=== PATIENT | female | born 1960 | race Caucasian/White ===

== ENCOUNTER 2020-12-14 14:24 | Emergency (ER) | payer OTHER ==
[~2020-12-14 14:24] MED LIST: PEPCID AC20 MG PO
[2020-12-14 16:27] LABS: BASOPHIL 0.5 % (0-2); EOSINOPHIL 1.6 % (0-5); HCT 40.5 % (37.0-47.0); HGB 13.4 g/dl (12.5-16.0); LYMPHOCYTE 47.5 % (15-48); MCH 31.3 pg (25.0-31.0); MCHC 33.1 g/dL (32.0-36.0); MCV 94.6 fL (78.0-100.0); MONOCYTE 6.5 % (0-12); MPV 9.1 fL (6.0-9.5); NEUTROPHIL 43.6 % (41-80); NRBC 0; PLT 258 K/uL (150-400); RBC 4.28 M/uL (4.20-5.40); RDW 13.8 % (11.5-14.0); WBC 8.7 K/uL (4.0-10.5)
[2020-12-14 16:43] LABS: ALBUMIN 3.7 g/dL (3.4-5.0); BILIRUBIN - TOTAL 0.3 mg/dL (0.2-1.0); BUN/CREAT RATIO (CALC) 26.1 RATIO; CREATININE 0.88 mg/dL (0.51-0.95); GLOBULIN (CALCULATION) 3.4 g/dL; POTASSIUM 4.3 mmol/L (3.5-5.1); TOTAL PROTEIN 7.1 g/dL (6.4-8.2)
[2020-12-14 16:58] LABS: BILIRUBIN NEGATIVE (NEGATIVE); BLOOD NEGATIVE Ery/uL (NEGATIVE); CLARITY CLEAR (CLEAR); COLOR YELLOW (YELLOW); GLUCOSE (U) NORMAL (NORMAL); LEUKOCYTES 1+ Leu/uL (NEGATIVE); NITRITE NEGATIVE (NEGATIVE); PROTEIN NEGATIVE (NEGATIVE); UROBILINOGEN 0.2 mg/dL (0.2-1.0); pH 5.5 (5.0-9.0)
[2020-12-14 17:05] LABS: BACTERIA TRACE
[2020-12-14] MEDS ORDERED: MACROBID100 MG PO (18:59)
== END 2020-12-14 19:27 | disposition home or self-care (01) ==
LOC: FER 14:24
PROVIDERS: Nurse Practitioner Family
DX: N39.0 Urinary tract infection, site not specified (principal); I10 Essential (primary) hypertension; J45.909 Unspecified asthma, uncomplicated; E11.9 Type 2 diabetes mellitus without complications; Z20.822 Contact with and (suspected) exposure to COVID-19; Z88.0 Allergy status to penicillin; Z88.8 Allergy status to other drugs, medicaments and biological substances
CPT/HCPCS: 36415; 74022; 80053; 81001; 85025; J7030; U0002

== ENCOUNTER 2021-09-09 12:09 | Emergency (ER) | payer OTHER ==
[~2021-09-09 12:09] MED LIST changes: +MACROBID100 MG PO
[2021-09-09 13:23] LABS: BASOPHIL 0.5 % (0-2); EOSINOPHIL 1.5 % (0-5); HCT 41.8 % (37.0-47.0); LYMPHOCYTE 46.2 % (15-48); MCH 30.9 pg (25.0-31.0); MCHC 33.5 g/dL (32.0-36.0); MCV 92.3 fL (78.0-100.0); MONOCYTE 5.7 % (0-12); MPV 8.8 fL (6.0-9.5); NEUTROPHIL 45.1 % (41-80); NRBC 0; PLT 257 K/uL (150-400); RBC 4.53 M/uL (4.20-5.40); RDW 13.9 % (11.5-14.0); WBC 9.9 K/uL (4.0-10.5)
[2021-09-09 13:32] LABS: ALBUMIN 3.7 g/dL (3.4-5.0); BILIRUBIN - TOTAL 0.3 mg/dL (0.2-1.0); BUN/CREAT RATIO (CALC) 19.6 RATIO; CREATININE 0.92 mg/dL (0.51-0.95); GLOBULIN (CALCULATION) 3.5 g/dL; TOTAL PROTEIN 7.2 g/dL (6.4-8.2)
== END 2021-09-09 15:18 | disposition home or self-care (01) ==
LOC: FER 12:09
PROVIDERS: Emergency Medicine
DX: U07.1 COVID-19 (principal); K76.0 Fatty (change of) liver, not elsewhere classified; J45.909 Unspecified asthma, uncomplicated; E11.9 Type 2 diabetes mellitus without complications; I10 Essential (primary) hypertension; E66.9 Obesity, unspecified; Z88.0 Allergy status to penicillin; Z88.8 Allergy status to other drugs, medicaments and biological substances; Z79.84 Long term (current) use of oral hypoglycemic drugs; Z79.899 Other long term (current) drug therapy
CPT/HCPCS: 36415; 36600; 71045; 71275; 80053; 82803; 83880; 84484; 85025; 85379; 93005; Q9967

== ENCOUNTER 2022-01-05 16:43 | Emergency (ER) | payer OTHER ==
[2022-01-05 18:08] LABS: BASOPHIL 0.3 % (0-2); HGB 14.9 g/dl (12.5-16.0); LYMPHOCYTE 33.9 % (15-48); MCH 31.9 pg (25.0-31.0); MCHC 33.1 g/dL (32.0-36.0); MCV 96.4 fL (78.0-100.0); MONOCYTE 6.5 % (0-12); MPV 8.7 fL (6.0-9.5); NRBC 0; PLT 275 K/uL (150-400); RBC 4.67 M/uL (4.20-5.40); RDW 13.5 % (11.5-14.0); WBC 11.4 K/uL (4.0-10.5)
[2022-01-05 18:16] LABS: BILIRUBIN NEGATIVE (NEGATIVE); BLOOD NEGATIVE Ery/uL (NEGATIVE); CLARITY CLEAR (CLEAR); COLOR YELLOW (YELLOW); GLUCOSE (U) NORMAL (NORMAL); LEUKOCYTES 1+ Leu/uL (NEGATIVE); NITRITE NEGATIVE (NEGATIVE); PROTEIN NEGATIVE (NEGATIVE); UROBILINOGEN 0.2 mg/dL (0.2-1.0)
[2022-01-05 18:26] LABS: ALBUMIN 3.9 g/dL (3.4-5.0); BILIRUBIN - TOTAL 0.3 mg/dL (0.2-1.0); BUN/CREAT RATIO (CALC) 18.4 RATIO; CREATININE 0.87 mg/dL (0.51-0.95); GLOBULIN (CALCULATION) 3.9 g/dL; TOTAL PROTEIN 7.8 g/dL (6.4-8.2)
[2022-01-05 18:32] LABS: BACTERIA 1+
[2022-01-05] MEDS ORDERED: ONDANSETRON HCL4 MG PO (20:28)
[2022-01-05] MEDS ORDERED: BENTYL10 MG PO (20:28)
== END 2022-01-05 20:50 | disposition home or self-care (01) ==
LOC: FER 16:43
PROVIDERS: Nurse Practitioner Family
DX: R10.31 Right lower quadrant pain (principal); R11.2 Nausea with vomiting, unspecified; E11.9 Type 2 diabetes mellitus without complications; I10 Essential (primary) hypertension; Z88.0 Allergy status to penicillin; Z88.1 Allergy status to other antibiotic agents; Z88.8 Allergy status to other drugs, medicaments and biological substances
CPT/HCPCS: 36415; 80053; 81001; 82150; 83690; 85025; 87088; J2270; J2405; J7030; Q9967